=== PATIENT | female | born 2000 ===

== ENCOUNTER 2022-06-12 09:07 | Outpatient (CLI) | payer OTHER, SELFPAY | END 2022-06-12 09:08 | disposition home or self-care (01) | LOC: AMB 06-13 14:57 | PROVIDERS: Visit Provider Family Medicine | DX: S49.82XA Other specified injuries of left shoulder and upper arm, initial encounter (principal); V48.3XXA Unspecified car occupant injured in noncollision transport accident in nontraffic accident, initial encounter; Y92.411 Interstate highway as the place of occurrence of the external cause | CPT/HCPCS: A0425; A0429 ==